=== PATIENT | male | born 1985 | race Caucasian/White ===

== ENCOUNTER 2018-03-21 12:17 | Emergency (ER) | payer OTHER ==
[~2018-03-21 12:17] MED LIST: IBUP600T26 PO; MMW SSP; MOTR200T PO; PENI500T PO; TRAM50 PO
[2018-03-21 12:18] VITALS: BP 168/103; PULSE 90; RESP 16; TEMP 98.4; O2SAT 97
--- NOTE | 2018-03-21 12:40 | PD ---
HPI Chief Complaint: Flank/Kidney Pain Time Seen by Provider: 12:32 Travel History International Travel<30 days: No Contact w/Intl Traveler<30days: No Traveled to known affect area: No History of Present Illness HPI This 32-year-old male is complaining of right flank pain. The pain started yesterday morning and was fairly persistent. It is quite a severe today as it was yesterday. He has had 2 kidney stones in the past the last one was about 6 years ago. He says the pain this time seems a little bit different and that is more persistent. There has not been any fever or chills. He has not noted blood in the urine. He did have pain extending into the testicle yesterday. It was quite severe and prevented him from sleeping PFSH Past Medical History Diminished Hearing: No Kidney Stones: Yes Past Surgical History Surgical History: No Previous Surgery Social History Alcohol Use: Yes (RARE) Tobacco Use: No Substance Use: No Allergies-Medications (Allergen,Severity, Reaction): Coded Allergies: erythromycin base (Verified Allergy, Intermediate, [facility] CHILD, 03/21/18) Reported Meds & Prescriptions Reported Meds & Active Scripts Active No Active Prescriptions or Reported Medications Review of Systems General / Constitutional: No: Fever, Chills Eyes: No: Diploplia, Blurred Vision HENT: No: Headaches, Vertigo Cardiovascular: No: Palpitations Respiratory: No: Cough, Shortness of Breath Gastrointestinal: No: Nausea, Vomiting Genitourinary: Positive: Flank Pain Musculoskeletal: No: Myalgias, Arthralgias Physical Exam Narrative GENERAL: Well-developed male SKIN: Focused skin assessment warm/dry. HEAD: Atraumatic. Normocephalic. EYES: Pupils equal and round. No scleral icterus. No injection or drainage. ENT: No nasal bleeding or discharge. Mucous membranes pink and moist. NECK: Trachea midline. No JVD. CARDIOVASCULAR: Regular rate and rhythm. No murmur appreciated. RESPIRATORY: No accessory muscle use. Clear to auscultation. Breath sounds equal bilaterally. GASTROINTESTINAL: Abdomen soft, non-tender, nondistended. Hepatic and splenic margins not palpable. There is right CVA tenderness MUSCULOSKELETAL: No obvious deformities. No clubbing. No cyanosis. No edema. NEUROLOGICAL: Awake and alert. No obvious cranial nerve deficits. Motor grossly within normal limits. Normal speech. PSYCHIATRIC: Appropriate mood and affect; insight and judgment normal. Data Data Last Documented VS Vital Signs Date Time Temp Pulse Resp B/P (MAP) Pulse Ox O2 Delivery O2 Flow Rate FiO2 03/21/18 13:47 80 16 157/82 (107) 98 Room Air 03/21/18 12:18 98.4 Orders Orders Complete Blood Count With Diff (03/21/18 12:37) Basic Metabolic Panel (Bmp) (03/21/18 12:37) Urinalysis - C+S If Indicated (03/21/18 12:37) Ct Abd/Pel W/O Iv Contrast (03/21/18 12:37) Labs Laboratory Tests Test 03/21/18 12:35 03/21/18 12:40 Urine Collection Type C C Urine Color YELLOW Urine Turbidity CLEAR Urine pH 6.5 Urine Specific [place] LESS/EQUAL 1.005 Urine Protein NEG mg/dL Urine Glucose (UA) NEG mg/dL Urine Ketones NEG mg/dL Urine Occult Blood SMALL Urine Nitrite NEG Urine Bilirubin NEG Urine Urobilinogen 0.2 MG/DL Urine Leukocyte Esterase NEG Urine RBC 0-3 /hpf Urine Squamous Epithelial Cells 0-5 /hpf Urine Amorphous Sediment CNI Urine Collection Time 1235 White Blood Count 9.7 TH/MM3 Red Blood Count 5.30 MIL/MM3 Hemoglobin 15.6 GM/DL Hematocrit 46.5 % Mean Corpuscular Volume 87.6 FL Mean Corpuscular Hemoglobin 29.4 PG Mean Corpuscular Hemoglobin Concent 33.6 % Red Cell Distribution Width 12.7 % Platelet Count 308 TH/MM3 Mean Platelet Volume 7.2 FL Neutrophils (%) (Auto) 66.7 % Lymphocytes (%) (Auto) 21.1 % Monocytes (%) (Auto) 7.6 % Eosinophils (%) (Auto) 0.4 % Basophils (%) (Auto) 4.2 % Neutrophils # (Auto) 6.5 TH/MM3 Lymphocytes # (Auto) 2.1 TH/MM3 Monocytes # (Auto) 0.7 TH/MM3 Eosinophils # (Auto) 0.0 TH/MM3 Basophils # (Auto) 0.4 TH/MM3 CBC Comment DIFF FINAL Differential Comment Blood Urea Nitrogen 16 MG/DL Creatinine 1.60 MG/DL Random Glucose 97 MG/DL Calcium Level 9.3 MG/DL Sodium Level 136 MEQ/L Potassium Level 3.9 MEQ/L Chloride Level 104 MEQ/L Carbon Dioxide Level 24.3 MEQ/L Anion Gap 8 MEQ/L Estimat Glomerular Filtration Rate 50 ML/MIN MDM Medical Decision Making Medical Screen Exam Complete: Yes Emergency Medical Condition: Yes Medical Record Reviewed: Yes Differential Diagnosis Differential includes renal colic, UTI Narrative Course CT scan shows a 1 mm stone that may have passed or may be in the most distal portion of the ureter. Patient will be released with prescription for [place] Diagnosis Primary Impression: Renal colic on right side Scripts Hydrocodone-Acetaminophen ([place]) 7.5-325 mg Tab 1 TAB PO Q4H Y for PAIN, #12 TAB 0 Refills Prov: Mateo Christensen MD 03/21/18 Disposition: 01 DISCHARGE HOME Condition: Stable Mateo Christensen MD Mar 21, 2018 12:40
[2018-03-21 12:50] LABS: BILIRUBIN, URINE NEG (NEG); BLOOD, URINE SMALL (NEG); GLUCOSE,URINE NEG (NEG); KETONE, URINE NEG (NEG); NITRITE,URINE NEG (NEG); PH, URINE 6.5 (5.0-8.5); URINE COLOR YELLOW (YELLW/STRAW); URINE LEUKOCYTE ESTERASE NEG (NEG)
[2018-03-21 12:53] LABS: AUTOMATED NEUTROPHIL # 6.5 TH/MM3 (1.8-7.7); BASOPHIL # 0.4 TH/MM3 (0-0.2); BASOPHIL % 4.2 % (0.0-2.0); EOSINOPHIL % 0.4 % (0.0-4.0); HEMATOCRIT 46.5 % (39.0-51.0); HEMOGLOBIN 15.6 GM/DL (13.0-17.0); LYMPH % 21.1 % (9.0-44.0); LYMPHOCYTE # 2.1 TH/MM3 (1.0-4.8); MEAN CELL VOLUME 87.6 FL (80.0-100.0); MEAN CORPUSCULAR HEMOGLOBIN 29.4 PG (27.0-34.0); MEAN CORPUSCULAR HGB CONC 33.6 % (32.0-36.0); MEAN PLATELET VOLUME 7.2 FL (7.0-11.0); MONO % 7.6 % (0.0-8.0); MONOCYTE # 0.7 TH/MM3 (0-0.9); NEUT % 66.7 % (16.0-70.0); PLATELET COUNT 308 TH/MM3 (150-450); RED CELL DISTRIBUTION WIDTH 12.7 % (11.6-17.2); WHITE BLOOD COUNT 9.7 TH/MM3 (4.0-11.0)
[2018-03-21 13:00] LABS: CALCIUM 9.3 MG/DL (8.5-10.1)
[2018-03-21 13:01] LABS: BICARBONATE 24.3 MEQ/L (21.0-32.0)
[2018-03-21 13:01] LABS: AMORPHOUS SEDIMENT, URINE CNI; RBC, URINE 0-3 /hpf (0-3); SQUAMOUS EPITHELIAL CELL URINE 0-5 /hpf (0-5)
[2018-03-21 13:04] LABS: CREATININE 1.6 MG/DL (0.60-1.30)
[2018-03-21 13:47] VITALS: BP 157/82; PULSE 80; RESP 16; O2SAT 98
--- NOTE | 2018-03-21 14:09 | RADRPT ---
EXAM DATE: 03/21/2018 1:42 PM EDT AGE/SEX: 32 years / Male INDICATIONS: Right flank pain for two days. CLINICAL DATA: This is the patient's initial encounter. Patient reports that signs and symptoms have been present for 2 days and indicates a pain score of 7/10. MEDICAL/SURGICAL HISTORY: Renal calculi. None. RADIATION DOSE: 22.17 CTDI (mGy) COMPARISON: No prior exams available for comparison. TECHNIQUE: Multiple contiguous axial images were obtained through the abdomen. Images were obtained using multiple row detector helical technique. Using dose reduction techniques, radiation dose was ke pt as low as reasonably achievable to obtain optimal diagnostic quality images. FINDINGS: Lower Lungs: The visualized lower lungs are clear. Liver: The liver has a homogeneously low density without space-occupying lesion. There is no dilation of the biliary tree. Spleen: Homogeneous density without enlargement. Pancreas: Unremarkable without mass or calcification. Kidneys: There is a 1 mm stone either within the intramural segment of the right UVJ or just within the urinary bladder itself. There is mild hydronephrosis and hydroureter. A 1 mm stones seen involvin g the upper pole of the right kidney. 2 small stones seen involving the left kidney. Each measures 1 mm. No hydronephrosis on the left. Mild perinephric stranding on the right. No perinephric fluid marcell ections.. Adrenal Glands: Unremarkable. Aorta: The aorta and proximal iliac vessels are grossly unremarkable without aneurysmal dilation. Bowel/Mesentery: The bowel loops are grossly unremarkable. The cecum and sigmoid colon have a normal configuration. Abdominal Wall: Intact. Retroperitoneum: No evidence of adenopathy in the retrocrural, para-aortic, or deep pelvic regions. Bladder: 1 mm calcification associated with the wall of the right urinary bladder either within the lumen or intramural segment of the right UVJ. Contours are smooth. Reproductive Organs: No abnormal masses or calcifications seen. Inguinal: The inguinal region is unremarkable without evidence of adenopathy. Bony Structures: Unremarkable. CONCLUSION: 1. 1 mm stone either within the intramural segment at the right UVJ or within the urinary bladder it self. There is mild hydronephrosis and hydroureter. 2. Nonobstructing calculi involving both kidneys. 3. Hepatic steatosis. Electronically signed by: Westley Esparza MD 03/21/2018 2:08 PM EDT
[2018-03-21] MEDS ORDERED: HYDR-3288 PO (14:32)
== END 2018-03-21 14:46 | disposition home or self-care (01) ==
LOC: PHED 12:17
DX: N23 Unspecified renal colic (principal); Z87.442 Personal history of urinary calculi; Z88.1 Allergy status to other antibiotic agents
CPT/HCPCS: 74176; 80048; 81001; 85025